=== PATIENT | female | born 1940 | race Caucasian/White ===

== ENCOUNTER 2024-08-11 08:55 | Observation (INO) ==
--- NOTE | 2024-08-11 09:34 | Emergency Department Note ---
Impression & Plan Unresponsive episode, Constipation, Dementia ED Provider Note NAME: JAVI TIJERINA AGE: 84 SEX: F : 1940 ARRIVES VIA: Ambulance INFORMANT: Patient ED PROVIDER(S): Jimbo Anne MD CHIEF COMPLAINT: Syncope, abdominal pain. PLAN: Disposition: Admit MEDICAL DECISION MAKING: The patient is an 84-year-old woman with past medical history of severe dementia, hypertension, hyperlipidemia who presents to the emergency department from her halfway facility for evaluation of syncope which occurred at breakfast. Patient is also reporting abdominal pain and burning. Patient is a poor historian due to severe dementia. Per staff at her facility patient is currently at her baseline/nonverbal. On evaluation patient is uncomfortable in no distress, afebrile with blood pressure 90s/50s and vital signs otherwise stable. She appears clinically dry. She is moving all extremities equally. She has mild lower abdominal fullness without discrete tenderness. EKG without overt acute ischemia. Chest x-ray negative for acute cardiopulmonary process. KUB demonstrates fecal impaction within the rectum with a large stool ball noted. WBC, H/H and platelets within normal limits. Chemistry without metabolic acidosis. Electrolytes and LFTs unremarkable. High-sensitivity troponin 5.4, within normal limits. Lipase normal. TSH normal limits. UA without evidence of infection. Respiratory BioFire was negative. CT of the head was negative for acute abnormalities. CT of the abdomen pelvis also performed and further characterizes large amount of stool within the rectum and otherwise no acute abnormalities. Given the patient's syncope in the setting of severe constipation patient was referred to the hospital service for admission and further management. Suspect syncope may have been precipitated by component of vasovagal effect given severe fecal impaction within the rectum. Case was discussed with Dr. Zazueta, [facility] hospitalist, who will evaluate the patient for admission. Further management per admitting team. Triage Nursing notes reviewed and agree them. Prior/external medical records reviewed Vital Signs: reviewed Differential diagnosis: Vasovagal event, dehydration, infection, hypoglycemia, electrolyte abnormalities, cardiac sources, intracerebral event, pulmonary embolism, seizure, toxicologic, neurologic, as well as other pathologies. ER treatment provided: See below. Diagnostics interpreted by me: ECG: Normal sinus rhythm, 84 bpm, no ectopy, LVH, no overt acute ischemia. QTc 508, QRS 114. Cardiac Monitoring: An order for continuous cardiac monitoring was placed and demonstrated Normal sinus rhythm, 84 bpm, no ectopy Laboratory studies: See below Imaging studies: See below Consultation(s): Case was discussed with Dr. Zazueta, [facility] hospitalist, who will evaluate the patient for admission. HPI: The patient is an 84-year-old woman with past medical history of severe dementia, hypertension, hyperlipidemia who presents to the emergency department from her halfway facility for evaluation of syncope which occurred at breakfast. Patient is also reporting abdominal pain and burning. Patient is a poor historian due to severe dementia. Per staff at her facility patient is currently at her baseline/nonverbal. ROS: See above HPI for pertinent positives & negatives. A total of 10 systems reviewed and were otherwise negative. VITALS:See Below PHYSICAL EXAMINATION: GENERAL: Awake, uncomfortable-appearing, in no distress HENT: Normocephalic, atraumatic. Oropharynx with dry mucous membranes and otherwise unremarkable. EYES: Normal conjunctiva. Sclera non-icteric. NECK: Supple. No nuchal rigidity. FROM. No JVD. RESPIRATORY: Clear to auscultation. CARDIAC: Regular rate, normal rhythm. Extremities warm and well perfused. Pulses equal. ABDOMEN: Soft. Mild lower abdominal fullness without discrete tenderness. No rebound or guarding. MUSCULOSKELETAL: Chest examination reveals no tenderness. The back is symmetrical on inspection without obvious abnormality. There is no CVA tenderness to palpation. No joint edema. LOWER EXTREMITIES: Calves are equal size bilaterally and non-tender. No edema. No discoloration. NEURO: Confused at baseline for dementia. No focal sensory or motor deficits noted. SKIN: No rash or jaundice noted. Jimbo Anne MD Past Med/Surg History Problem List (Updated 08/11/24 @ 21:14 by Jimbo Anne MD) Hyperlipidemia Depression Essential (primary) hypertension Unresponsive episode (Acute) Constipation (Acute) Abdominal pain Dementia (Acute) Medical History Osteoporosis Atherosclerosis Social History Smoking Status: Former smoker Second Hand Exposure: No; Do You Dip or Chew Tobacco: No; Tobacco Cessation Education Requested by Patient: No Hx Alcohol Use: No Hx Substance Use: No Preferred Language: Khmer Communication Ability: Effective Roller Stainer Required: No Beliefs That Will Affect Care: None Current Living Situation: Prison Other Information That Helps Us Care for You: No Feels Safe at Home: Yes Safety Concerns: Feels Safe At This Time Assistive Devices: Cane Assistive Devices Comment: partial denture Allergies Allergies Allergy/AdvReac Type Severity Reaction Status Date / Time ciprofloxacin Allergy Unknown Verified 08/11/24 12:37 metronidazole Allergy Unknown Verified 08/11/24 12:37 simvastatin Allergy Unknown Verified 08/11/24 12:37 Home Meds Home Medications Medication Instructions Recorded Confirmed donepezil 10 mg tablet 10 mg PO DAILY 08/11/24 08/11/24 losartan 25 mg tablet 25 mg PO DAILY 08/11/24 08/11/24 memantine 10 mg tablet 10 mg PO BID 08/11/24 08/11/24 potassium chloride 10 mEq 10 meq PO DAILY 08/11/24 08/11/24 capsule,extended release quetiapine 25 mg tablet 25 mg PO BID 08/11/24 08/11/24 rosuvastatin 10 mg tablet 10 mg PO DAILY 08/11/24 08/11/24 valacyclovir 1 gram tablet 1,000 mg PO DAILY 08/11/24 08/11/24 Results & Data (ED) Vital Signs Vital Signs - 24 hr 08/11/24 09:06 08/11/24 09:06 08/11/24 09:12 Temperature 36.3 C L Temperature Source Axillary Pulse Rate 84 Pulse Rate [Apical] 84 Respiratory Rate 31 H 20 Respiratory Effort / Characteristics Non-Labored Non-Labored Respiratory Depth Normal Normal Blood Pressure 116/51 L Blood Pressure [Right Arm] 116/51 L Blood Pressure Mean 72 Blood Pressure Mean [Right Arm] 72 Blood Pressure Position [Right Arm] Pulse Oximetry 98 98 98 Oxygen Delivery Method Room Air Room Air Room Air Oxygen Flow Rate Sepsis Recent Fever Within 48 Hours No Sepsis New/Unexplained Change in Mental Status No Sepsis Action Taken by Nursing No Action Required 08/11/24 09:12 08/11/24 09:29 08/11/24 10:11 Temperature Temperature Source Pulse Rate 85 Pulse Rate [Apical] 72 Respiratory Rate 24 Respiratory Effort / Characteristics Non-Labored Spontaneous Respiratory Depth Normal Blood Pressure Blood Pressure [Right Arm] 97/56 L Blood Pressure Mean Blood Pressure Mean [Right Arm] 69 Blood Pressure Position [Right Arm] Lying Pulse Oximetry 98 90 Oxygen Delivery Method Room Air Room Air Oxygen Flow Rate Sepsis Recent Fever Within 48 Hours Sepsis New/Unexplained Change in Mental Status Sepsis Action Taken by Nursing 08/11/24 10:26 08/11/24 12:11 Temperature Temperature Source Pulse Rate Pulse Rate [Apical] 72 Respiratory Rate 26 H Respiratory Effort / Characteristics Non-Labored Spontaneous Respiratory Depth Normal Blood Pressure Blood Pressure [Right Arm] 99/54 L 150/61 H Blood Pressure Mean Blood Pressure Mean [Right Arm] 69 90 Blood Pressure Position [Right Arm] Semi-fowlers Pulse Oximetry 94 97 Oxygen Delivery Method Nasal Cannula Nasal Cannula Oxygen Flow Rate 2 2 Sepsis Recent Fever Within 48 Hours Sepsis New/Unexplained Change in Mental Status Sepsis Action Taken by Nursing Laboratory Data Attestation: I reviewed the patient's lab results. 08/11/24 09:37 08/11/24 09:37 Lab Results 08/11/24 08/11/24 Range/Units 09:30 09:37 WBC 7.13 (4.8-10.8) K/ul RBC 4.60 (4.20-5.40) M/uL Hgb 14.2 (12.0-16.0) g/dl Hct 42.5 (37.0-47.0) % MCV 92.4 (80.0-100.0) fL MCH 30.9 (25.0-34.0) pg MCHC 33.4 (32.0-36.0) g/dL RDW Std Deviation 42.4 (36.4-46.3) fL RDW Coeff of Cindy 12.5 (11.5-14.5) % Plt Count 183 (130-400) K/uL MPV 9.1 L (9.4-12.4) fL Immature Gran % (Auto) 0.1 % Neut % (Auto) 74.3 % Lymph % (Auto) 17.7 % [place] % (Auto) 6.2 % Eos % (Auto) 1.1 % Baso % (Auto) 0.6 % Neut # (Auto) 5.30 (1.40-6.50) K/uL Lymph # (Auto) 1.26 (1.20-3.40) K/uL [place] # (Auto) 0.44 (0.11-0.59) K/uL Eos # (Auto) 0.08 (0.00-0.50) K/uL Baso # (Auto) 0.04 (0.00-0.20) K/uL Immature Gran # (Auto) 0.01 (0.01-0.20) K/uL PT 10.9 (9.0-12.0) Seconds INR 1.0 (0.9-1.1) Sodium 142 (136-145) mmol/L Potassium 4.0 (3.5-5.1) mmol/L Chloride 106 (98-107) mmol/L Carbon Dioxide 27 (21-32) mmol/L Anion Gap 9 (3-11) BUN 19 (6-23) mg/dl Creatinine 0.94 (0.6-1.2) mg/dl Est Cr Clr Drug Dosing 44.6 ml/min eGFR 59.09 BUN/Creatinine Ratio 20.2 H (10-20) Glucose 107 H (70-99(Fasting)) mg/dl Calcium 9.9 (8.6-10.3) mg/dl Magnesium 1.8 (1.7-2.4) mg/dl Total Bilirubin 0.6 (0.2-1.0) mg/dl AST 17 (13-39) U/L ALT 15 (7-52) U/L Alkaline Phosphatase 94 (34-104) U/L Troponin I High Sens 5.4 (0-14) pg/ml Total Protein 6.7 (6.0-8.3) gm/dl Albumin 4.3 (3.4-5.0) gm/dl Globulin 2.4 L (2.5-4.0) gm/dl Albumin/Globulin Ratio 1.8 (0.9-2) Lipase 53 (11-82) U/L TSH 2.675 (0.300-4.500) uIu/ml Urine Color Dark Yellow Urine Appearance Clear (Clear) Urine pH 6.5 (4.5-7.5) Ur Specific [place] 1.018 (1.000-1.030) Urine Protein 1+ H (Negative) Urine Glucose (UA) Negative (Negative) Urine Ketones Negative (Negative) Urine Blood Negative (Negative) Urine Nitrite Negative (Negative) Urine Bilirubin Negative (Negative) Urine Urobilinogen Negative (Negative) Ur Leukocyte Esterase Negative (Negative) Urine WBC (Auto) 0-5 (0-5) /hpf Urine RBC (Auto) 0-2 (0-2) /hpf U Hyaline Cast (Auto) 3-5 H (0-2) /lpf U Epithel Cells (Auto) 0-2 (0-2) /hpf Urine Bacteria (Auto) None Seen (None Seen) Urine Mucus Present A (None Prsent) Adenovirus (PCR) Not Detected (NotDetected) B. pertussis DNA (PCR) Not Detected (NotDetected) B.parapertussis DNA PCR Not Detected (NotDetected) C. pneumoniae DNA (PCR) Not Detected (NotDetected) Coronavirus OC43 (PCR) Not Detected (NotDetected) Coronavirus HKU1 (PCR) Not Detected (NotDetected) Coronavirus 229E (PCR) Not Detected (NotDetected) SARS-CoV-2 (PCR) Not Detected (NotDetected) Coronavirus NL63 (PCR) Not Detected (NotDetected) Human Metapneumovir PCR Not Detected (NotDetected) Influenza Type A (PCR) Not Detected (NotDetected) Influenza Type B (PCR) Not Detected (NotDetected) M. pneumoniae (PCR) Not Detected (NotDetected) Parainfluenza 1 (PCR) Not Detected (NotDetected) Parainfluenza 2 (PCR) Not Detected (NotDetected) Parainfluenza 3 (PCR) Not Detected (NotDetected) Parainfluenza 4 (PCR) Not Detected (NotDetected) RSV (PCR) Not Detected (NotDetected) Entero/Rhino (PCR) Not Detected (NotDetected) Administered Medications Acetaminophen (Acetaminophen 325 Mg Tab) 650 mg PO Q4H PRN PRN Reason: Pain or Fever Stop: 09/10/24 14:57 Last Admin: 08/11/24 19:43 Dose: 650 mg Documented By: ENVIRONMENTAL PLANNING ENGINEER Memantine (Memantine Hcl 10 Mg Tab) 10 mg PO BID KOBY Stop: 09/10/24 20:59 Last Admin: 08/11/24 19:42 Dose: 10 mg Documented By: ENVIRONMENTAL PLANNING ENGINEER Polyethylene Glycol (Polyethylene (Miralax) 17 Gm Pack) 17 gm PO BID17 KOBY Stop: 09/10/24 16:59 Last Admin: 08/11/24 16:20 Dose: 17 gm Documented By: ANHD Quetiapine Fumarate (Quetiapine Fumarate 25 Mg Tablet) 25 mg PO BID KOBY Stop: 09/10/24 20:59 Last Admin: 08/11/24 19:43 Dose: 25 mg Documented By: AXEL Discontinued Medications Bisacodyl (Bisacodyl 5 Mg Tabec) 5 mg PO NOW ONE Stop: 08/11/24 12:16 Last Admin: 08/11/24 13:17 Dose: 5 mg Documented By: ZURDO Glycerin (Glycerin Adult 12 Supp/Box Supp) 1 supp [place] NOW ONE Stop: 08/11/24 12:16 Last Admin: 08/11/24 13:17 Dose: 1 supp Documented By: ZURDO Ioversol (Optiray 320 100ml) 94 ml IV ONCE ONE Stop: 08/11/24 11:26 Last Admin: 08/11/24 11:25 Dose: 94 ml Documented By: KAVON Polyethylene Glycol (Polyethylene (Miralax) 17 Gm Pack) 17 gm PO NOW STA Stop: 08/11/24 12:16 Last Admin: 08/11/24 13:17 Dose: 17 gm Documented By: ZURDO Imaging Data Radiologist's Impression: Chest X-Ray 08/11/24 09:07 XR chest 1V portable CLINICAL HISTORY: Syncope. COMPARISON STUDY: No previous studies for comparison. FINDINGS: Lung volumes are normal. Linear left basilar density represents atelectasis. There is no pneumothorax or pleural effusion. Cardiac size is normal. Mediastinal contours are normal. There is no evidence for pulmonary edema. Incidental note is made of calcific tendinitis of the left rotator cuff. IMPRESSION: No acute cardiopulmonary findings. ACT 112: Negative or not required by law. Electronically signed by: Brad Nieto M.D. 08/11/2024 10:29 AM KUB X-Ray 08/11/24 09:08 KUB CLINICAL HISTORY: Abdominal pain. COMPARISON STUDY: None. FINDINGS: There is a large amount of stool within the rectum. There is a paucity of small bowel gas. No evidence for free air on supine exam. Pelvic calcifications favor phleboliths. No acute fractures are identified by radiography. IMPRESSION: 1. Large amount stool within the rectum. 2. Paucity of small bowel gas. This represents a nonspecific bowel gas pattern. No definite evidence for a bowel obstruction. ACT 112: Negative or not required by law. Electronically signed by: Brad Niteo M.D. 08/11/2024 10:31 AM Abdomen/Pelvis CT 08/11/24 10:53 CT OF THE ABDOMEN AND PELVIS WITH CONTRAST CLINICAL HISTORY: Abdominal pain. Constipation. COMPARISON STUDY: KUB performed earlier today. TECHNIQUE: Following IV administration of 94 mL of Optiray, axial images of the abdomen and pelvis were obtained from the lung bases to the proximal femurs. Images were reviewed in the axial, sagittal, and coronal planes. IV contrast was administered without complication. Automated exposure control was utilized for the study. A dose lowering technique was utilized adhering to the principles of ALARA. FINDINGS: No pneumatosis, free air or portal venous gas is present. Liver, spleen, adrenal glands, kidneys and pancreas are unremarkable. There is no biliary or pancreatic ductal dilatation. Bilateral renal parapelvic cysts are noted. A 4 mm right renal sinus calcification is likely vascular. There are no ureteral calculi. There is no hydronephrosis. There is a large amount of stool within the rectum. Colonic diverticulosis is present without evidence for acute diverticulitis. There is no lymphadenopathy. There are no fluid collections. There is moderate aortoiliac atherosclerotic plaque. IMPRESSION: 1. Large amount of stool within the rectum. 2. No bowel obstruction. No bowel wall thickening. 3. Colonic diverticulosis. No evidence for acute diverticulitis. ACT 112: Negative or not required by law. Electronically signed by: Brad Nieto M.D. 08/11/2024 12:[address] 08/11/24 10:53 CT OF THE HEAD WITHOUT CONTRAST CLINICAL HISTORY: syncope COMPARISON STUDY: No previous studies for comparison. CT DOSE: 1851.51 mGy.cm TECHNIQUE: Helical axial images of the head were obtained without IV contrast. Automated exposure control was utilized for the study. A dose lowering technique was utilized adhering to the principles of ALARA. FINDINGS: No acute intracranial hemorrhage, midline shift or mass effect is present. White matter hypodensity suggests small vessel disease. The ventricular system is unremarkable. The basal cisterns are patent. No extra-axial collections are present. There are no findings to suggest acute dural sinus thrombosis or acute territorial infarct. No significant calvarial abnormalities are present. Visualized portions of the sinuses and mastoid air cells are clear. IMPRESSION: 1. No acute intracranial findings. 2. No calvarial fractures. ACT 112: Negative or not required by law. Electronically signed by: Brad Nieto M.D. 08/11/2024 11:36 AM Discharge Plan Visit Data Chief Complaint: Syncope Stated Complaint: SYNCOPE ED Provider: Jimbo Anne Discharge Problem: Unresponsive episode, Constipation, Dementia Patient Disposition: Admitted As Inpatient Discharge Instructions Interventions: ED Discharge Assessment Last Done: 08/11/24 14:10 Discharge Problem: Constipation Qualifiers: Constipation type: unspecified constipation type Qualified Code(s): K59.00 - Constipation, unspecified Dementia Qualifiers: Dementia type: unspecified type Dementia severity: severe Dementia behavioral or psychological symptom: unspecified whether behavioral, psychotic, or mood disturbance or anxiety Qualified Code(s): F03.C0 - Unspecified dementia, severe, without behavioral disturbance, psychotic disturbance, mood disturbance, and anxiety
[2024-08-11 09:52] LABS: Appearance Urine Clear (Clear); Bacteria Urine Automated None Seen (None Seen); Bilirubin Urine Negative (Negative); Blood Urine Negative (Negative); Color Urine Dark Yellow; Epithelial Cell Urine Auto 0-2 /hpf (0-2); Glucose Urine UA Negative (Negative); Ketones Urine Negative (Negative); Leukocyte Esterase Urine Negative (Negative); Mucus Urine Present (None Prsent); Nitrite Urine Negative (Negative); Protein Urine 1+ (Negative); RBC Urine Automated 0-2 /hpf (0-2); Specific Gravity Urine 1.018 (1.000-1.030); Urobilinogen Urine Negative (Negative); WBC Urine Automated 0-5 /hpf (0-5); pH Urine 6.5 (4.5-7.5)
[2024-08-11 10:00] LABS: Basophils # (auto) 0.04 K/uL (0.00-0.20); Basophils % (auto) 0.6 %; Eosinophils # (auto) 0.08 K/uL (0.00-0.50); Eosinophils % (auto) 1.1 %; Hematocrit (blood only) 42.5 % (37.0-47.0); Hemoglobin 14.2 g/dl (12.0-16.0); Immature Granulocytes # (auto) 0.01 K/uL (0.01-0.20); Immature Granulocytes % (auto) 0.1 %; Lymphocytes # (auto) 1.26 K/uL (1.20-3.40); Lymphocytes % (auto) 17.7 %; Mean Corpuscular Hemoglobin 30.9 pg (25.0-34.0); Mean Corpuscular Hgb Conc 33.4 g/dL (32.0-36.0); Mean Corpuscular Volume 92.4 fL (80.0-100.0); Mean Platelet Volume 9.1 fL (9.4-12.4); Monocytes # (auto) 0.44 K/uL (0.11-0.59); Monocytes % (auto) 6.2 %; Neutrophils % (auto) 74.3 %; Platelet Count 183 K/uL (130-400); RDW Coefficient of Variation 12.5 % (11.5-14.5); RDW Standard Deviation 42.4 fL (36.4-46.3); White Blood Count 7.13 K/ul (4.8-10.8)
[2024-08-11 10:15] LABS: Albumin Globulin Ratio 1.8 (0.9-2); Albumin Level 4.3 gm/dl (3.4-5.0); BUN Creatinine Ratio 20.2 (10-20); Bilirubin,Total 0.6 mg/dl (0.2-1.0); Calcium 9.9 mg/dl (8.6-10.3); Creatinine Clr Calc Pharmacy 44.6 ml/min; Globulin 2.4 gm/dl (2.5-4.0); Magnesium 1.8 mg/dl (1.7-2.4); Total Protein 6.7 gm/dl (6.0-8.3)
[2024-08-11 10:22] LABS: Troponin I High Sensitivity 5.4 pg/ml (0-14)
[2024-08-11 10:26] LABS: Prothrombin Time 10.9 Seconds (9.0-12.0)
[2024-08-11 10:31] LABS: Thyroid Stimulating Hormone 2.675 uIu/ml (0.300-4.500)
--- NOTE | 2024-08-11 10:31 | XRay Report ---
XR chest 1V portable CLINICAL HISTORY: Syncope. COMPARISON STUDY: No previous studies for comparison. FINDINGS: Lung volumes are normal. Linear left basilar density represents atelectasis. There is no pn eumothorax or pleural effusion. Cardiac size is normal. Mediastinal contours are normal. There is no evidence for pulmonary edema. Incidental note is made of calcific tendinitis of the left rotator cuff . IMPRESSION: No acute cardiopulmonary findings. ACT 112: Negative or not required by law. Electronically signed by: Brad Nieto M.D. 08/11/2024 10:29 AM
--- NOTE | 2024-08-11 10:32 | XRay Report ---
KUB CLINICAL HISTORY: Abdominal pain. COMPARISON STUDY: None. FINDINGS: There is a large amount of stool within the rectum. There is a paucity of small bowel gas. No evidence for free air on supine exam. Pelvic calcifications favor phleboliths. No acute fractures are identified by radiography. IMPRESSION: 1. Large amount stool within the rectum. 2. Paucity of small bowel gas. This represents a nonspecific bowel gas pattern. No definite evidence for a bowel obstruction. ACT 112: Negative or not required by law. Electronically signed by: Brad Nieto M.D. 08/11/2024 10:31 AM
[2024-08-11 10:35] LABS: Adenovirus PCR Not Detected (NotDetected); Bordetella parapertussis PCR Not Detected (NotDetected); Bordetella pertussis PCR Not Detected (NotDetected); Chlamydia pneumoniae PCR Not Detected (NotDetected); Coronavirus 229E PCR Not Detected (NotDetected); Coronavirus CoV-2 (COVID19)PCR Not Detected (NotDetected); Coronavirus HKU1 PCR Not Detected (NotDetected); Coronavirus NL63 PCR Not Detected (NotDetected); Coronavirus OC43PCR Not Detected (NotDetected); Human Metapneumovirus PCR Not Detected (NotDetected); Influenza A PCR Not Detected (NotDetected); Influenza B PCR Not Detected (NotDetected); Mycoplasma pneumoniae PCR Not Detected (NotDetected); Parainfluenza Virus 1 PCR Not Detected (NotDetected); Parainfluenza Virus 2 PCR Not Detected (NotDetected); Parainfluenza Virus 3 PCR Not Detected (NotDetected); Parainfluenza Virus 4 PCR Not Detected (NotDetected); Respiratory Syncytial VirusPCR Not Detected (NotDetected); Rhinovirus/Enterovirus PCR Not Detected (NotDetected)
[2024-08-11] MEDS: OPTIRAY 320 100ml IV ONE (11:25)
--- NOTE | 2024-08-11 11:38 | CT Scan Report ---
CT OF THE HEAD WITHOUT CONTRAST CLINICAL HISTORY: syncope COMPARISON STUDY: No previous studies for comparison. CT DOSE: 1851.51 mGy.cm TECHNIQUE: Helical axial images of the head were obtained without IV contrast. Automated exposure con trol was utilized for the study. A dose lowering technique was utilized adhering to the principles o f ALARA. FINDINGS: No acute intracranial hemorrhage, midline shift or mass effect is present. White matter hyp odensity suggests small vessel disease. The ventricular system is unremarkable. The basal cisterns ar e patent. No extra-axial collections are present. There are no findings to suggest acute dural sinus thrombosis or acute territorial infarct. No significant calvarial abnormalities are present. Visualiz ed portions of the sinuses and mastoid air cells are clear. IMPRESSION: 1. No acute intracranial findings. 2. No calvarial fractures. ACT 112: Negative or not required by law. Electronically signed by: Brad Nieto M.D. 08/11/2024 11:36 AM
--- NOTE | 2024-08-11 11:41 | History & Physical Report ---
Date of Service August 11, 2024 Assessment & Plan (1) Unresponsive episode: Plan: Unresponsive episode while sitting a breakfast on the morning of 08/11; patient was poorly drooling, shaking, and sweating H/o dementia On arrival, patient's family reports she is around her cognitive baseline Head CT without acute findings Labs and UA unremarkable on arrival Unclear etiology on admission; ? Secondary to constipation/urinary retention; ? vasovagal Bladder scan as needed Continuous telemetry monitoring A.m. CBC, BMP (2) Abdominal pain: Plan: Patient has reportedly complained of "burning" abdominal pain and suprapubic tenderness over the past few days No leukocytosis; afebrile on arrival A/P CT revealed large amount of stool within the rectum; w/o infectious findings MiraLAX BID Dulcolax second line PRN Milk of magnesia third line PRN (3) Dementia: Plan: Continue donepezil, memantine (4) Constipation: (5) Atherosclerosis: (6) Essential (primary) hypertension: (7) Depression: (8) Hyperlipidemia: (9) Osteoporosis: Plan [facility] Regular diet, easy to chew (aspiration precautions) VTE PPx: Teds (high fall risk) History of Present Illness Chief Complaint: Unresponsive episode Primary Care Provider: Jameson Bynum is an 84-year-old female with PMH of dementia, HLD, and HTN. She presented on 08/11 via EMS from the dementia unit at [facility] for an unresponsive episode while eating breakfast. Patient is a poor historian at baseline due to her underlying dementia. She reports she does not remember eating breakfast this morning or becoming unresponsive. Patient's children (Trae and Becky) are at the bedside and provide most the history. They report that they spoke to [facility], and that she had an unresponsive episode this morning where she was sweating and drooling and not responding to staff. No prior episodes of unresponsiveness or passing out to their knowledge. Son does report that she had a fall 1 month ago that led to a head bleed and hospitalization at [place]. Daughter reports that she was visiting with her mother yesterday, and she was complaining of abdominal pain and said that she felt like she was going to "throw up". When daughter put her in bed, she slept, and was moaning in her sleep. Patient denies any stomach pain at this time, but does report that she feels like she has to pee. No prior history of UTIs to children's knowledge, but she does have history of kidney stones. Patient is unsure if she has had a fever or chills the past couple days, but does note she has been excessively fatigued. She does not use supplemental oxygen at baseline or CPAP at night. No sick contacts to her knowledge. History of abdominal surgeries remove a cyst from her ovaries; no history of appendectomy or cholecystectomy. No PMH of stroke to her knowledge. Patient's children report that she is currently on her cognitive baseline. She ambulates with a cane at baseline, but does not use it regularly. She does have history of recurrent falls. Patient denies smoking or tobacco use. Her children are her medical hodgson of district attorney/medical proxy's. While they do not believe there is a POLST form in place, they reconfirm that her CODE STATUS is DNR/DNI. Patient is mildly hypotensive at 99/54 at time of admission; SpO2 94% on 2L NC. ED course: Difficult to obtain ROS given patient's underlying dementia; however: Patient endorses fatigue, lower abdominal pain/suprapubic tenderness, and desire to urinate. Patient is unsure if she has had fever, chills, night sweats, dizziness/lightheadedness, or syncope. Patient denies headache, chest pain, SOB, cough, burning with urination, or dysuria. Allergies Allergy/AdvReac Type Severity Reaction Status Date / Time ciprofloxacin Allergy Unknown Verified 08/11/24 12:37 metronidazole Allergy Unknown Verified 08/11/24 12:37 simvastatin Allergy Unknown Verified 08/11/24 12:37 Home Medications Medication Instructions Recorded Confirmed Type donepezil 10 mg tablet 10 mg PO DAILY 08/11/24 08/11/24 History losartan 25 mg tablet 25 mg PO DAILY 08/11/24 08/11/24 History memantine 10 mg tablet 10 mg PO BID 08/11/24 08/11/24 History potassium chloride 10 mEq 10 meq PO DAILY 08/11/24 08/11/24 History capsule,extended release quetiapine 25 mg tablet 25 mg PO BID 08/11/24 08/11/24 History rosuvastatin 10 mg tablet 10 mg PO DAILY 08/11/24 08/11/24 History valacyclovir 1 gram tablet 1,000 mg PO DAILY 08/11/24 08/11/24 History Past Med/Surg History Problem List (Updated 08/11/24 @ 12:32 by Franck Escobar PA-C) Hyperlipidemia Depression Essential (primary) hypertension Unresponsive episode Constipation Abdominal pain Dementia Medical History (Updated 08/11/24 @ 12:32 by Franck Escobar PA-C) Osteoporosis Atherosclerosis Social History Smoking Status: Unknown if ever smoked Preferred Language: Swiss Feels Safe at Home: Yes Review of Systems Review of Systems: See HPI above Physical Exam Physical Exam: General: no acute distress; children at bedside; non-toxic appearing; cooperative; SpO2 97% on 2L NC HEENT: normocephalic, atraumatic; no scleral icterus; PERRLA; vision and hearing intact; patient demonstrates ability to smile and frown without unilateral deficits Neck: supple; no lymphadenopathy; trachea midline Skin: warm, dry without signs of tenting; no cyanosis; no rashes, bruising, lesions, or erythema noted CV: chest wall NTP; RRR; S1/S2 normal; no murmurs/rubs/gallops; pulses intact and symmetric at radial, DP, and PT Lungs: no acute respiratory distress; symmetrical chest wall expansion; clear breath sounds across all lung castillo w/o adventitious sounds; no wheezing ABD: Soft; no signs of rashes or bruising; RLQ and LLQ are TTP; suprapubic tenderness; BS present; no rebound/guarding; no distention MSK: no tics or fasciculations; no edema noted in the LEs b/l, nonerythematous; 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; patient demonstrates ability wiggle toes and lift legs bilaterally Neuro: Alert and oriented to name, , and location; not oriented to purpose in the hospital or month of the year; normal mood and affect; fluent speech; no facial droop; no focal deficits; patient reports that sensation is intact and symmetric in the upper extremities and lower extremities bilaterally Results & Data Results & Data Vital Signs (Past 12 Hours) Vital Signs Temp Pulse Pulse Resp BP BP Pulse Ox 08/11/24 10:26 99/54 L 94 08/11/24 10:11 72 24 97/56 L 90 08/11/24 09:29 85 08/11/24 09:12 98 08/11/24 09:12 84 20 116/51 L 98 08/11/24 09:06 98 08/11/24 09:06 36.3 C L 84 31 H 116/51 L 98 O2 Del Method O2 Flow Rate 08/11/24 10:26 Nasal Cannula 2 08/11/24 10:11 Room Air 08/11/24 09:29 08/11/24 09:12 Room Air 08/11/24 09:12 Room Air 08/11/24 09:06 Room Air 08/11/24 09:06 Room Air Laboratory Results Abnormal lab results 08/11/24 08/11/24 Range/Units 09:30 09:37 MPV 9.1 L (9.4-12.4) fL BUN/Creatinine Ratio 20.2 H (10-20) Glucose 107 H (70-99(Fasting)) mg/dl Globulin 2.4 L (2.5-4.0) gm/dl Urine Protein 1+ H (Negative) U Hyaline Cast (Auto) 3-5 H (0-2) /lpf Urine Mucus Present A (None Prsent) Diagnostic Findings Chest X-Ray 08/11/24 09:07 XR chest 1V portable CLINICAL HISTORY: Syncope. COMPARISON STUDY: No previous studies for comparison. FINDINGS: Lung volumes are normal. Linear left basilar density represents atelectasis. There is no pneumothorax or pleural effusion. Cardiac size is normal. Mediastinal contours are normal. There is no evidence for pulmonary edema. Incidental note is made of calcific tendinitis of the left rotator cuff. IMPRESSION: No acute cardiopulmonary findings. ACT 112: Negative or not required by law. Electronically signed by: Brad Nieto M.D. 08/11/2024 10:29 AM KUB X-Ray 08/11/24 09:08 KUB CLINICAL HISTORY: Abdominal pain. COMPARISON STUDY: None. FINDINGS: There is a large amount of stool within the rectum. There is a paucity of small bowel gas. No evidence for free air on supine exam. Pelvic calcifications favor phleboliths. No acute fractures are identified by radiography. IMPRESSION: 1. Large amount stool within the rectum. 2. Paucity of small bowel gas. This represents a nonspecific bowel gas pattern. No definite evidence for a bowel obstruction. ACT 112: Negative or not required by law. Electronically signed by: Brad Nieto M.D. 08/11/2024 10:31 AM Abdomen/Pelvis CT 08/11/24 10:53 CT OF THE ABDOMEN AND PELVIS WITH CONTRAST CLINICAL HISTORY: Abdominal pain. Constipation. COMPARISON STUDY: KUB performed earlier today. TECHNIQUE: Following IV administration of 94 mL of Optiray, axial images of the abdomen and pelvis were obtained from the lung bases to the proximal femurs. Images were reviewed in the axial, sagittal, and coronal planes. IV contrast was administered without complication. Automated exposure control was utilized for the study. A dose lowering technique was utilized adhering to the principles of ALARA. FINDINGS: No pneumatosis, free air or portal venous gas is present. Liver, spleen, adrenal glands, kidneys and pancreas are unremarkable. There is no biliary or pancreatic ductal dilatation. Bilateral renal parapelvic cysts are noted. A 4 mm right renal sinus calcification is likely vascular. There are no ureteral calculi. There is no hydronephrosis. There is a large amount of stool within the rectum. Colonic diverticulosis is present without evidence for acute diverticulitis. There is no lymphadenopathy. There are no fluid collections. There is moderate aortoiliac atherosclerotic plaque. IMPRESSION: 1. Large amount of stool within the rectum. 2. No bowel obstruction. No bowel wall thickening. 3. Colonic diverticulosis. No evidence for acute diverticulitis. ACT 112: Negative or not required by law. Electronically signed by: Brad Nieto M.D. 08/11/2024 12:[address] 08/11/24 10:53 CT OF THE HEAD WITHOUT CONTRAST CLINICAL HISTORY: syncope COMPARISON STUDY: No previous studies for comparison. CT DOSE: 1851.51 mGy.cm TECHNIQUE: Helical axial images of the head were obtained without IV contrast. Automated exposure control was utilized for the study. A dose lowering techniq ue was utilized adhering to the principles of ALARA. FINDINGS: No acute intracranial hemorrhage, midline shift or mass effect is present. White matter hypodensity suggests small vessel disease. The ventricular system is unremarkable. The basal cisterns are patent. No extra-axial collections are present. There are no findings to suggest acute dural sinus thrombosis or acute territorial infarct. No significant calvarial abnormalities are present. Visualized portions of the sinuses and mastoid air cells are clear. IMPRESSION: 1. No acute intracranial findings. 2. No calvarial fractures. ACT 112: Negative or not required by law. Electronically signed by: Brad Nieto M.D. 08/11/2024 11:36 AM ECG Additional Comments: ECG revealed NSR 84 bpm; QTc 508 (caution use of QT prolonging agents) Code Status & VTE Plan Code Status DNR/DNI (confirmed with both patient and patient's children at bedside) VTE Prophylaxis Plan VTE Prophylaxis will be ordered: Yes Supervising Physician Co-Signing Physician Notes Patient seen and examined, chart reviewed, case discussed with Franck Escobar PA-C and I agree with the assessment and plan as above except as otherwise noted Labs and images reviewed Misa is an 84-year-old female new to me from prior admission after an intracranial bleed who presents with abdominal discomfort and a fall. CThead is without acute intracranial findings. CTabdomen/pelvis does not show solid organ injury or acute findings but she does have a large amount of stool in the rectum and she has had difficulty voiding. Suspect urinary retention due to incontinence and may also have some vasovagal effect from this. She has been complaining of some rectal pain with bowel movements consistent with this. Will start with glycerin suppository, MiraLAX daily, Dulcolax as needed. We will soften stool suppository, and if is not passing stool regularly then will follow-up with fleets enema. Discussed with family who are in agreement with admission, treatment of her constipation, observation with PT/OT assessments and continuation of current care. She did require straight cath on admission for retention, hopefully as her bowel regimen works and rectal pain improves this will also improve. Agree with above. PG Care Time/CCT Total # of Minutes Spent Total Time Spent with Patient: Total time spent is greater than 50% in coordination of care (as documented) at patient's floor/unit and/or counseling patient: [place] [address] INT INP/OBS CARE 3/75MIN Patient Type New Medical Decision Making High Complexity Diagnoses Unresponsive episode R40.4 Abdominal pain R10.9 Dementia F03.90 Constipation K59.00 Atherosclerosis I70.90 Essential (primary) hypertension I10 Depression F32.A Hyperlipidemia E78.5 Osteoporosis M81.0
--- NOTE | 2024-08-11 12:03 | CT Scan Report ---
CT OF THE ABDOMEN AND PELVIS WITH CONTRAST CLINICAL HISTORY: Abdominal pain. Constipation. COMPARISON STUDY: KUB performed earlier today. TECHNIQUE: Following IV administration of 94 mL of Optiray, axial images of the abdomen and pelvis we re obtained from the lung bases to the proximal femurs. Images were reviewed in the axial, sagittal, and coronal planes. IV contrast was administered without complication. Automated exposure control wa s utilized for the study. A dose lowering technique was utilized adhering to the principles of ALARA . FINDINGS: No pneumatosis, free air or portal venous gas is present. Liver, spleen, adrenal glands, ki dneys and pancreas are unremarkable. There is no biliary or pancreatic ductal dilatation. Bilateral r enal parapelvic cysts are noted. A 4 mm right renal sinus calcification is likely vascular. There are no ureteral calculi. There is no hydronephrosis. There is a large amount of stool within the rectum. Colonic diverticulosis is present without evidence for acute diverticulitis. There is no lymphadenop athy. There are no fluid collections. There is moderate aortoiliac atherosclerotic plaque. IMPRESSION: 1. Large amount of stool within the rectum. 2. No bowel obstruction. No bowel wall thickening. 3. Colonic diverticulosis. No evidence for acute diverticulitis. ACT 112: Negative or not required by law. Electronically signed by: Brad Nieto M.D. 08/11/2024 12:01 PM
[2024-08-11] MEDS ORDERED: Patient's ALLERGY Info needs ENTERED STA (12:18)
[2024-08-11] MEDS: GLYCERIN ADULT 12 SUPP/BOX SUPP PR ONE (13:17)
[2024-08-11] MEDS: POLYETHYLENE (MIRALAX) 17 GM PACK PO STA (13:17)
[2024-08-11] MEDS: bisacodyL 5 MG TABEC PO ONE (13:17)
[2024-08-11] MEDS ORDERED: MAGNESIUM HYDROXIDE SUSP 30 ML UDC PO PRN (14:58)
[2024-08-11] MEDS ORDERED: bisacodyL 5 MG TABEC PO PRN (14:58)
[2024-08-11] MEDS: POLYETHYLENE (MIRALAX) 17 GM PACK PO SCH (16:20)
[2024-08-11] MEDS: MEMANTINE HCL 10 MG TAB PO SCH (19:42)
[2024-08-11] MEDS: ACETAMINOPHEN 325 MG TAB PO PRN (19:43)
[2024-08-11] MEDS: QUEtiapine FUMARATE 25 MG TABLET PO SCH (19:43)
[2024-08-12 06:53] LABS: Hematocrit (blood only) 39.3 % (37.0-47.0); Hemoglobin 13.3 g/dl (12.0-16.0); Mean Corpuscular Hemoglobin 30.9 pg (25.0-34.0); Mean Corpuscular Hgb Conc 33.8 g/dL (32.0-36.0); Mean Corpuscular Volume 91.4 fL (80.0-100.0); Mean Platelet Volume 9.1 fL (9.4-12.4); Platelet Count 188 K/uL (130-400); RDW Coefficient of Variation 12.8 % (11.5-14.5); RDW Standard Deviation 42.4 fL (36.4-46.3); White Blood Count 5.78 K/ul (4.8-10.8)
[2024-08-12 07:11] LABS: BUN Creatinine Ratio 25.3 (10-20); Calcium 9.5 mg/dl (8.6-10.3); Creatinine Clr Calc Pharmacy 43.5 ml/min; Potassium 3.9 mmol/L (3.5-5.1)
--- NOTE | 2024-08-12 08:03 | Hospitalist Progress Note ---
Date of Service August 12, 2024 Assessment & Plan (1) Unresponsive episode: Plan: Unresponsive episode while sitting a breakfast on the morning of 08/11; patient was poorly drooling, shaking, and sweating H/o dementia On arrival, patient's family reports she is around her cognitive baseline Head CT without acute findings Labs and UA unremarkable on arrival Unclear etiology on admission; ? Secondary to constipation/urinary retention; ? vasovagal Bladder scan as needed Continuous telemetry monitoring A.m. CBC, BMP (2) Abdominal pain: Plan: Patient has reportedly complained of "burning" abdominal pain and suprapubic tenderness over the past few days No leukocytosis; afebrile on arrival A/P CT revealed large amount of stool within the rectum; w/o infectious findings MiraLAX BID Dulcolax second line PRN Milk of magnesia third line PRN (3) Dementia: Plan: Continue donepezil, memantine (4) Constipation: (5) Atherosclerosis: (6) Essential (primary) hypertension: (7) Depression: (8) Hyperlipidemia: (9) Osteoporosis: Plan Disposition: Admit to [facility] telemetry DNR/DNI Regular diet, easy to chew (aspiration precautions) VTE PPx: Teds (high fall risk) Admission and Anticipated Discharge Date Admission Date: August 11, 2024 Results & Data Results & Data Vital Signs (Past 12 Hours) Vital Signs Temp Pulse Pulse Resp BP Pulse Ox O2 Del Method 08/12/24 06:57 70 08/12/24 04:00 36.7 C 65 18 113/70 92 Room Air 08/11/24 22:53 36.5 C 70 18 104/63 92 Room Air 08/11/24 22:01 69 08/11/24 22:01 69 (3) Dementia Dementia behavioral or psychological symptom: unspecified whether behavioral, psychotic, or mood disturbance or anxiety Dementia severity: severe Dementia type: unspecified type Qualified Code(s): F03.C0 - Unspecified dementia, severe, without behavioral disturbance, psychotic disturbance, mood disturbance, and anxiety (4) Constipation Constipation type: unspecified constipation type Qualified Code(s): K59.00 - Constipation, unspecified
[2024-08-12] MEDS: DONEPEZIL HCL 10 MG TAB PO SCH (08:05)
[2024-08-12] MEDS: valACYclovir HCL 500 MG TABLET PO SCH (08:05)
[2024-08-12] MEDS: POTASSIUM CHLORIDE 10 MEQ TABCR PO SCH (08:05)
[2024-08-12] MEDS: ROSUVASTATIN CALCIUM 10 MG TAB PO SCH (08:06)
[2024-08-12] MEDS: LOSARTAN POTASSIUM 25 MG TAB PO SCH (08:06)
[2024-08-12] MEDS: POLYETHYLENE (MIRALAX) 17 GM PACK PO SCH (11:09)
[2024-08-12 11:25] VITALS: BP 76/40; RESP 16; TEMP 97.9; O2SAT 94
[2024-08-12 14:05] VITALS: PULSE 73
--- NOTE | 2024-08-12 17:53 | Discharge Summary ---
Date of Service August 12, 2024 Admission HPI Per Admitting Provider Misa is an 84-year-old female with PMH of dementia, HLD, and HTN. She presented on 08/11 via EMS from the dementia unit at [facility] for an unresponsive episode while eating breakfast. Patient is a poor historian at baseline due to her underlying dementia. She reports she does not remember eating breakfast this morning or becoming unresponsive. Patient's children (Trae and Becky) are at the bedside and provide most the history. They report that they spoke to [facility], and that she had an unresponsive episode this morning where she was sweating and drooling and not responding to staff. No prior episodes of unresponsiveness or passing out to their knowledge. Son does report that she had a fall 1 month ago that led to a head bleed and hospitalization at [facility]. Daughter reports that she was visiting with her mother yesterday, and she was complaining of abdominal pain and said that she felt like she was going to "throw up". When daughter put her in bed, she slept, and was moaning in her sleep. Patient denies any stomach pain at this time, but does report that she feels like she has to pee. No prior history of UTIs to children's knowledge, but she does have history of kidney stones. Patient is unsure if she has had a fever or chills the past couple days, but does note she has been excessively fatigued. She does not use supplemental oxygen at baseline or CPAP at night. No sick contacts to her knowledge. History of abdominal surgeries remove a cyst from her ovaries; no history of appendectomy or cholecystectomy. No PMH of stroke to her knowledge. Patient's children report that she is currently on her cognitive baseline. She ambulates with a cane at baseline, but does not use it regularly. She does have history of recurrent falls. Patient denies smoking or tobacco use. Her children are her medical [employer] tech/medical proxy's. While they do not believe there is a POLST form in place, they reconfirm that her CODE STATUS is DNR/DNI. Patient is mildl y hypotensive at 99/54 at time of admission; SpO2 94% on 2L NC. ED course: Difficult to obtain ROS given patient's underlying dementia; Patient endorses fatigue, lower abdominal pain/suprapubic tenderness, and desire to urinate. Patient is unsure if she has had fever, chills, night sweats, dizziness/lightheadedness, or syncope. Patient denies headache, chest pain, SOB, cough, burning with urination, or dysuria. Admission Exam Per Admitting Provider General: no acute distress; children at bedside; non-toxic appearing; c ooperative; SpO2 97% on 2L NC HEENT: normocephalic, atraumatic; no scleral icterus; PERRLA; vision and hearing intact; patient demonstrates ability to smile and frown without unilateral deficits Neck: supple; no lymphadenopathy; trachea midline Skin: warm, dry without signs of tenting; no cyanosis; no rashes, bruising, lesions, or erythema noted CV: chest wall NTP; RRR; S1/S2 normal; no murmurs/rubs/gallops; pulses intact and symmetric at radial, DP, and PT Lungs: no acute respiratory distress; symmetrical chest wall expansion; clear breath sounds across all lung castillo w/o adventitious sounds; no wheezing ABD: Soft; no signs of rashes or bruising; RLQ and LLQ are TTP; suprapubic tenderness; BS present; no rebound/guarding; no distention MSK: no tics or fasciculations; no edema noted in the LEs b/l, nonerythematous; 5/5 client coordinator strength bilaterally; patient demonstrates ability wiggle toes and lift legs bilaterally Neuro: Alert and oriented to name, , and location; not oriented to purpose in the hospital or month of the year; normal mood and affect; fluent speech; no facial droop; no focal deficits; patient reports that sensation is intact and symmetric in the upper extremities and lower extremities bilaterally Principal Diagnosis Unresponsiveness likely Vasovagal Discharge Exam General: No acute distress, Seems comfortable, lying on propped op position HEENT: Normocephalic, atraumatic; no scleral icterus; PERRLAs Neck: supple; no lymphadenopathy; Trachea midline Skin: Warm, dry without signs of tenting; no cyanosis; no rashes, bruising, lesions, or erythema noted CVS: RRR; S1/S2 normal; no murmurs/rubs/gallops Lungs:BL equal air entry, No added sound ABD: Soft; Non Tender, BS +nt MSK: Normal power in both UL , LL Neuro: Alert and oriented to name, , and location, Normal mood and affect; fluent speech Discharge Data Allergies Allergy/AdvReac Type Severity Reaction Status Date / Time ciprofloxacin Allergy Unknown Verified 08/11/24 12:37 metronidazole Allergy Unknown Verified 08/11/24 12:37 simvastatin Allergy Unknown Verified 08/11/24 12:37 Consultations 08/11/24 12:10 ED Decision to Admit Stat Ordered Studies 08/11/24 10:53 CT abd pelvis IV con only Stat CT head/brain wo con Stat Hospital Course (1) Unresponsive episode: (2) Abdominal pain: (3) Dementia: (4) Constipation: (5) Atherosclerosis: (6) Essential (primary) hypertension: (7) Depression: (8) Hyperlipidemia: (9) Osteoporosis: Plan 1) Unresponsive episode: Plan: Unresponsive episode while sitting a breakfast on the morning of 08/11; patient was poorly drooling, shaking, and sweating H/o dementia On arrival, patient's family reports she is around her cognitive baseline Head CT without acute findings Labs and UA unremarkable on arrival Unclear etiology ?Secondary to constipation/urinary retention; ? vasovagal Telemetry: Normal sinus rhythm Vitals: BP on lower range on admission: Losartan held Other Vitals: WNL Labs: CBC, CMP, Urine WNL (2) Abdominal pain: Plan: Patient had reportedly complained of "burning" abdominal pain and suprapubic tenderness over the past few days No leukocytosis; afebrile on arrival A/P CT revealed large amount of stool within the rectum; w/o infectious findings MiraLAX BID was continued on admission She had a significant large bowel movement morning of day of discharge; pain rel ieved significantly as well. (3) Dementia: Plan: Continue donepezil, memantine Total Time Total Time Spent Total Time Spent (In Minutes): See Attending's Attestation Discharge Plan Discharge Items Patient Disposition: Transfer [facility] Reason For Visit: UNRESPONSIVE EPISODE, CONSTIPATION Discharge Diagnosis: Unresponsive episode likely secondary to ?Vasovagal ?Severe constipation Activity: Resume your previous activity Non-emergency contact: Primary Care Provider Call non-emergency contact if: your symptoms worsen Follow-up/Referrals: Jameson Franks [Primary Care Provider] - Diet: Regular Addtl Attending Provider Instructions: You were admitted to the hospital for Observation after Unresponsiveness. Your evaluations were normal. A discharge summary will be sent to your primary care physician to ensure continuity of care. Please bring this discharge summary with you to your next office appointment so that your provider can review it at that time. Follow-up appointments: Make a follow-up appointment with your PCP within the next week. It is very important that you follow up with them shortly after discharge from the hospital. Keep all your follow-up appointments as already scheduled. If you cannot make an appointment, notify your provider. Medications: Your medication list has been reviewed and reconciled upon discharge to ensure accuracy and continuity of care. An updated list of all your medications is included with your hospital discharge paperwork. Please review this list closely, and make note of any changes. We stopped your Losartan( the high blood pressure med) for now as your blood pressure were on lower range on hospital stay. Monitor your blood pressure at [facility], and F/U with your PCP. If you have any issues filling these prescriptions, please call [phone] and ask to leave a message for Dr. Messina Take your medications as instructed; do not skip a dose of your medicines. Make sure all of your doctors know every medicine you are taking (including uztj-deq-limvady medicines, vitamins, and supplements). Call your primary care provider before taking any new medicines (including over- the-counter medicines, vitamins, and supplements), because some of these may interact with your current medications, or may make your symptoms worse. Tell your primary care provider if you cannot afford your medications. CONTACT YOUR PRIMARY CARE PROVIDER if you experience any of the following: Worsening of symptoms Fever, chills, or fatigue Difficulty following your treatment plan, or difficulty taking medications CALL 911 OR GO TO THE EMERGENCY DEPARTMENT if you experience any of the following: Sudden, severe abdominal pain or nausea/vomiting Severe chest pain, or chest pain that radiates (moves) to your jaw or arm Sudden, severe shortness of breath or difficulty breathing Thank you for allowing us to participate in your care. Pending Studies at Discharge: No Stand-Alone Forms: [employer] Skilled Items Patient informed of condition?: Yes DNR: Yes Discharge Level of Care: Skilled Communicable Disease: No Discharge Prognosis: Stable Lines: None Urinary Catheter: No Medications and DC Order Prescriptions: Continued quetiapine 25 mg tablet 25 mg PO BID potassium chloride 10 mEq capsule, extended release 10 meq PO DAILY valacyclovir 1 gram tablet 1,000 mg PO DAILY donepezil 10 mg tablet 10 mg PO DAILY rosuvastatin 10 mg tablet 10 mg PO DAILY memantine 10 mg tablet 10 mg PO BID Discontinued losartan 25 mg tablet 25 mg PO DAILY Discharge Orders: Discharge Order (Routine); Ordered 08/12/24 Ordered By: Kathryn Goldman/Other Patient Handouts: Blood Pressure Check Steps, ED Constipation (Adult) Admission Data Admit Date/Time: 08/11/24 12:18 Attending Provider: Susana Noriega Admit Provider: Александр Zazueta Primary Care Provider: Jameson Franks Other Providers: Александр Zazueta Other Interventions: Discharge Summary Assessment (RN) Last Done: 08/12/24 13:10 Supervising Physician Co-Signing Physician Notes Attending Physician Supervision Note: I independently interviewed and examined the patient and verified the flores history and physical, reviewed labs and image studies and agree with findings and care plan noted above. alert this am. aware that she is at the hospital. had large BM this am. felt much better. eating lunch vitals noted nad heent nc at mmm breathing unlabored no accessory muscles good effort skin no rashes no pallor or icterus neuro no focal deficits. unresponsive episode in setting of hypotension - d/tiago losartan. dementia meds likely also causing orthostasis. further assessment as outpatient. constipation - resolved. consider aggressive bowel regimen. dementia - supportive care. d/c today.
--- NOTE | 2024-08-14 09:40 | Electrocardiogram Report ---
Test Reason : Blood Pressure : */* mmHG Vent. Rate : 84 BPM Atrial Rate : 84 BPM P-R Int : 170 ms QRS Dur : 114 ms QT Int : 430 ms P-R-T Axes : 69 25 110 degrees QTcB Int : 508 ms Poor data quality, interpretation may be adversely affected Normal sinus rhythm Minimal voltage criteria for LVH, may be normal variant ( Charanjit product ) Anterior infarct , age undetermined T wave abnormality, consider lateral ischemia Abnormal ECG No previous ECGs available Confirmed by Ancelmo Andino ([id number]) on 08/14/2024 9:39:50 AM Referred By: Confirmed By: Ancelmo Andino
== END 2024-08-12 15:14 ==
LOC: ED 08:55 → 2N 08:55 → SUATTDRO 12:18 → 2N 14:00